=== PATIENT | female | born 1935 | race Caucasian/White ===

== ENCOUNTER 2019-08-01 08:27 | Outpatient (CLI) | payer OTHER, SELFPAY ==
[2019-08-01 13:00] LABS: Basophils Absolute Auto 0.1 K/mm3 (0.0-0.1); Basophils Percent Auto 0.9 % (0.2-1.2); Eosinophils Absolute Auto 0.1 K/mm3 (0-0.3); Eosinophils Percent Auto 1.9 % (0-4.4); Hematocrit 42.9 % (37.0-47.0); Hemoglobin 13.7 g/dL (12.0-15.0); Immature Granulocyte Absolute 0.03 K/mm3 (0.00-0.031); Immature Granulocyte Percent A 0.5 % (0-0.5); Lymphocytes Absolute Auto 1.52 K/mm3 (0.9-3.2); Mean Corpuscular HGB Conc 31.9 g/dl (32-36); Mean Corpuscular Hemoglobin 31.6 pg (26-34); Mean Corpuscular Volume 98.8 fl (80-100); Mean Platelet Volume 10.7 fl (7.4-10.4); Monocytes Absolute Auto 0.6 K/mm3 (0.1-0.6); Monocytes Percent Auto 8.7 % (2.6-8.5); Neutrophils Absolute Auto 4.1 K/mm3 (1.3-6.7); Platelet Count Result 207 k/mm3 (150-375); Red Blood Count 4.34 M/mm3 (4.2-5.4); Red Cell Distribution Width 12.6 % (11.5-14.5); White Blood Count 6.3 K/mm3 (4.5-10.0)
[2019-08-01 13:13] LABS: Alanine Aminotransferase 21 U/L (4-35); Alkaline Phosphatase 59 U/L (38-126); Aspartate Amino Transferase 28 U/L (14-36); Bilirubin,Total 0.5 mg/dL (0.2-1.3); Blood Urea Nitrogen 14 mg/dL (7-17); Calcium 9.6 mg/dL (8.4-10.2); Carbon Dioxide 29 mmol/L (22-30); Chloride 104 mmol/L (98-107); Estimated Glomerular Filt Rate > 60; Glucose 91 mg/dL (65-105); Potassium 4.4 mmol/L (3.4-5.0); Sodium 139 mmol/L (137-145)
== END 2019-08-01 08:28 | disposition home or self-care (01) ==
PROVIDERS: PCP Internal Medicine; Visit Provider Internal Medicine
DX: I10 Essential (primary) hypertension (principal); Z79.899 Other long term (current) drug therapy
CPT/HCPCS: 36415; 80053; 82306; 84443; 85025

== ENCOUNTER 2021-10-16 20:07 | Emergency (ER) | payer OTHER, SELFPAY ==
--- NOTE | ~2021-10-16 | CT_ITS ---
EXAMINATION: CT abdomen pelvis wo con DATE: 10/16/2021 22:19 INDICATION: Abdominal pain. TECHNIQUE: Computed tomography (CT) of the abdomen and pelvis was performed without intravenous contr ast. Automated exposure control and iterative reconstruction technique were employed. The dose-length product was 658.29 mGy-cm. COMPARISON: CT abdomen and pelvis 01/29/16 FINDINGS: The visualized portions of the lung bases demonstrate mild atelectasis. No pleural effusion . Cardiomegaly is noted. No pericardial effusion. There is a small sliding hiatal hernia. There are c ysts in the liver measuring up to 12 mm. There are changes of cholecystectomy. The spleen, pancreas, adrenal glands, and kidneys are normal. There is diverticulosis of the colon without evidence of dive rticulitis. There are no dilated loops of bowel. The appendix is not visualized. There are no patholo gically enlarged lymph nodes. There is no free intraperitoneal fluid. There is a comminuted fractures of the sacrum involving the bilateral sacral ala and S2 segment. There is a small volume of hematoma in the extraperitoneal pelvis, right worse than left. There are fractures of the bilateral L5 transv erse processes. There is a fracture of left L4 transverse process. There is moderate lumbar thoracic spondylosis and mild lumbar spondylosis. IMPRESSION: 1. Acute fractures of the sacrum, bilateral L5 transverse processes, and left L4 transverse process. Reviewed, dictated and finalized at location A. IMPRESSION: 1. Acute fractures of the sacrum, bilateral L5 transverse processes, and left L 4 transverse process.
--- NOTE | ~2021-10-16 | XR_ITS ---
EXAMINATION: XR chest 1V portable DATE: 10/16/2021 20:31 INDICATION: Altered mental status. TECHNIQUE: A single frontal view of the chest was obtained. COMPARISON: CT abdomen and pelvis 01/29/2016 FINDINGS: The chest demonstrates clear lungs without pneumonia, pleural effusion, or pneumothorax. Th e heart size is normal. IMPRESSION: 1. No acute cardiopulmonary disease. Reviewed, dictated and finalized at location A.
--- NOTE | ~2021-10-16 | CT_ITS ---
EXAMINATION: CT brain wo con DATE: 10/16/2021 20:51 INDICATION: Altered mental status. TECHNIQUE: Computed tomography (CT) of the head was performed without intravenous contrast. The mA wa s adjusted according to patient size. Iterative reconstruction technique was employed. The dose-lengt h product was 605.33 mGy-cm. COMPARISON: Brain MRI 04/19/2019 FINDINGS: There is a 3.6 x 3.1 cm partially calcified extra-axial mass of the falx centered to the le ft of midline, consistent with a meningioma. There is low attenuation in the adjacent white matter in left frontal lobe, consistent with vasogenic edema, which is stable. There is no acute ischemic infa rct or intracranial hemorrhage. The ventricles are normal in size. The orbits are normal. There is mi ld mucosal thickening in the ethmoid sinuses. There is a left mastoid effusion. IMPRESSION: 1. Stable 3.6 cm meningioma overlying the posterior frontal lobes. Reviewed, dictated and finalized at location A.
[2021-10-16 20:15] VITALS: BP 112/54; PULSE 84; RESP 22; TEMP 36.7; O2SAT 94
--- NOTE | 2021-10-16 20:17 | ECG_ITS ---
Measurements Intervals [place] Rate: 66 P: 35 [place]: 121 QRS: 31 QRSD: 121 T: 42 QT: 435 QTc: 457 Interpretive Statements SINUS RHYTHM RIGHT BUNDLE BRANCH BLOCK BASELINE ARTIFACT- I, II, III, AVR, AVL, AVF, V4-V6 ABNORMAL ECG Electronically Signed On 10-17-2021 6:32:08 CDT by Elio Kellogg D.O.
[2021-10-16] MEDS: SODIUM CHLORIDE 0.9% IV 1,000 ML 999 ML IV CONT (21:19)
[2021-10-16 21:24] LABS: Basophils Absolute Auto 0.1 K/mm3 (0.0-0.1); Basophils Percent Auto 0.2 % (0.2-1.2); Hematocrit 36.7 % (37.0-47.0); Hemoglobin 12.2 g/dL (12.0-15.0); Immature Granulocyte Percent A 1.4 % (0-0.5); Lymphocytes Absolute Auto 0.42 K/mm3 (0.9-3.2); Mean Corpuscular HGB Conc 33.2 g/dl (32-36); Mean Corpuscular Hemoglobin 32.4 pg (26-34); Mean Corpuscular Volume 97.6 fl (80-100); Mean Platelet Volume 9.6 fl (7.4-10.4); Monocytes Absolute Auto 1.4 K/mm3 (0.1-0.6); Monocytes Percent Auto 6.6 % (2.6-8.5); Neutrophils Absolute Auto 18.6 K/mm3 (1.3-6.7); Neutrophils Percent Auto 89.8 % (45.5-73.1); Platelet Count Result 176 k/mm3 (150-375); Red Blood Count 3.76 M/mm3 (4.2-5.4); White Blood Count 20.8 K/mm3 (4.5-10.0)
[2021-10-16 21:24] LABS: Appearance Urine Clear (Clear); Bilirubin Urine Negative (Negative); Blood Urine 2+ (Negative); Color Urine Yellow (Yellow); Glucose Urine UA 2+ mg/dL (Negative); Ketones Urine Negative (Negative); Leukocyte Esterase Ur Negative LEU/UL (Negative); Nitrate Urine Negative (Negative); Protein Urine Trace mg/dL (Negative); Urobilinogen Urine 0.2 mg/dL (<2.0)
[2021-10-16 21:30] LABS: Hyaline Casts Urine 15-19 /lpf; Mucus Urine Rare /lpf; WBC Urine 0-3 /hpf
[2021-10-16 21:31] VITALS: BP 112/77; PULSE 71; RESP 23; O2SAT 95
[2021-10-16 21:33] LABS: Lactic Acid Reflex 2.8 mmol/L (0.7-2.0)
[2021-10-16 21:34] LABS: INR 1.3; Partial Thromboplastin Time 27.5 SECONDS (22.3-36.8)
--- NOTE | 2021-10-16 21:39 | ED.GENADULT ---
HPI - General Adult General Chief complaint: Anxiety Stated complaint: ANXIETY Time Seen by Provider: 10/16/21 20:07 Source: RN notes reviewed History of Present Illness HPI narrative: Patient presents emergency department from home via EMS for altered mental status. History is per the patient's daughter patient has a history of dementia and currently resides at home with the daughter. Per the daughter the patient became more agitated today when EMS arrived the patient been very agitated and received 2 of Valium. Per the daughter the patient seemed to be doing well earlier today but then became more agitated as the day gone on states that almost was like the patient could no longer walk. She denies any other recent illness the patient did have a fall approximately 4 days ago per the daughter but she does not believe she is had any falls since that time Related Data Home Medications Medication Instructions Recorded Confirmed bismuth subsalicylate 262 mg 2 tablet PO DAILY tablet 11/18/20 07/09/21 chewable tablet loratadine 5 mg disintegrating 5 mg PO ONCE 11/18/20 07/09/21 tablet memantine 10 mg tablet 10 mg PO BID tablet 07/09/21 07/09/21 sertraline 50 mg tablet 50 mg PO DAILY 07/09/21 07/09/21 Allergies Allergy/AdvReac Type Severity Reaction Status Date / Time No Known Allergies Allergy PER ER Verified 07/09/21 10:30 Review of Systems Review of Systems: Gen.: Denies fevers or chills ENT: Denies congestion Respiratory: Denies shortness of breath or cough CV: Denies chest pain GI: Denies abdominal pain nausea, emesis or diarrhea Neuro: See HPI Skin: Denies rash Except as documented, all other systems reviewed and negative [facility] Past Medical History Medical History (Updated 10/17/21 @ 01:31 by Stanton Hernandes DO) History of vaginal delivery Surgical History Surgical History History of cholecystectomy History of tonsillectomy Family History Family History Father Carcinoma of colon Family history of heart disease in male family member before age 55 Family history of malignant neoplasm Family history of dementia, Onset Age: 85 Mother Carcinoma of colon, Onset Age: 93 Family history of heart disease in male family member before age 55 Family history of cardiovascular disease Sibling Family history of heart disease in male family member before age 55 Family history of malignant neoplasm Diabetes mellitus Carcinoma of colon Family history of lung cancer, Onset Age: 76 Family history of primary malignant neoplasm of liver, Onset Age: 76 Grandparent Family history of tuberculosis Other Cerebrovascular accident Family history of coronary artery disease Hypertension Social History Social History Smoking status: Never smoker Second hand tobacco smoke exposure: No Alcohol intake: never Substance use: never Substance use type: does not use Exam Narrative: APPEARANCE: No acute distress, nontoxic, resting in bed EYES: EOMI, PERRL HEENT: Normocephalic, atraumatic, OMM Neck: Supple full range of motion without pain no managements RESPIRATORY: No respiratory distress Clear to auscultation bilaterally with no rhonchi wheezing or rales. CARDIOVASCULAR: Regular rate and rhythm without murmurs rubs or gallops. ABDOMINAL: Soft, nontender, nondistended, no rebound or guarding Back: No midline thoracic lumbar tenderness to palpation MUSCULOSKELETAl: Moves all extremities. No clubbing, cyanosis or edema. NEURO: Awake and alert x 1 Following commands, speech normal, no focal deficits SKIN:: Warm, dry. No rashes lesions or abrasions PSYCHIATRIC: Normal affect/mood, Course Course Emergency Course: Following initial exam repeated abdominal exam the patient is now noting tenderness on exam wi
[2021-10-16 21:42] LABS: Alanine Aminotransferase 30 U/L (6-35); Albumin Level 3.6 g/dL (3.5-5.1); Alkaline Phosphatase 71 U/L (38-126); Anion Gap 7 mmol/L (8-16); Aspartate Amino Transferase 52 U/L (14-36); Bilirubin,Total 0.9 mg/dL (0.2-1.3); Blood Urea Nitrogen 18 mg/dL (7-17); Calcium 8.6 mg/dL (8.4-10.2); Carbon Dioxide 24 mmol/L (22-30); Chloride 93 mmol/L (98-107); Estimated CRCL calculation 37 ml/min; Estimated Glomerular Filt Rate > 60; Glucose 130 mg/dL (65-110); Potassium 4.3 mmol/L (3.4-5.0); Sodium 124 mmol/L (137-145)
[2021-10-16 21:42] LABS: Add Urine Microscopic? YES
[2021-10-16 21:56] LABS: Troponin I 0.072 ng/mL (0.000-0.034)
[2021-10-16 23:00] VITALS: BP 116/81; PULSE 78; RESP 18; O2SAT 96
[2021-10-16 23:46] VITALS: BP 113/45; PULSE 73
[2021-10-16 23:55] LABS: Influenza A QL RT-PCR Negative (Negative); Influenza B QL RT-PCR Negative (Negative); SARS-CoV-2 RNA PCR Negative
[2021-10-17] VITALS (7 sets, daily range): BP systolic 94–129; BP diastolic 43–89; PULSE 67–86; RESP 16–22; O2SAT 92–93
[2021-10-17] MEDS: SODIUM CHLORIDE 0.9% IV 1,000 ML 100 ML IV CONT (00:10)
[2021-10-17 00:21] LABS: Reflex Lactic Acid Yes or No Add Lactic
[2021-10-17 00:43] LABS: Troponin I 0.073 ng/mL (0.000-0.034)
--- NOTE | 2021-10-17 02:30 | PC.NURSE ---
This nurse gave report to Krish at [facility] ED.
== END 2021-10-17 02:40 | disposition short-term general hospital (02) ==
PROVIDERS: Emergency Provider Emergency Medicine; PCP Internal Medicine
DX: S32.19XA Other fracture of sacrum, initial encounter for closed fracture (principal); S32.058A Other fracture of fifth lumbar vertebra, initial encounter for closed fracture; S32.048A Other fracture of fourth lumbar vertebra, initial encounter for closed fracture; D72.829 Elevated white blood cell count, unspecified; R77.8 Other specified abnormalities of plasma proteins; Z20.822 Contact with and (suspected) exposure to COVID-19; F03.90 Unspecified dementia, unspecified severity, without behavioral disturbance, psychotic disturbance, mood disturbance, and anxiety; D32.0 Benign neoplasm of cerebral meninges; I45.10 Unspecified right bundle-branch block; W19.XXXA Unspecified fall, initial encounter
CPT/HCPCS: 36415; 51701; 70450; 71045; 74176; 80053; 81001; 83605; 84443; 84484; 85025; 85610; 85730; 87040; 87502; 93005; 96360; 96361; 99285; C9803; J7030; U0003; U0005